=== PATIENT | male | born 1975 | race Caucasian/White ===

== ENCOUNTER 2019-10-02 23:13 | Emergency (ER) | payer BC ==
[~2019-10-02] VITALS: Ht 172.7 cm; Wt 94.5 kg
[2019-10-03 00:42] VITALS: BP 146/84
== END 2019-10-03 00:43 | disposition home or self-care (01) ==
LOC: ER 23:13
DX: I10 Essential (primary) hypertension (principal); Z88.0 Allergy status to penicillin; Z88.2 Allergy status to sulfonamides; Z88.5 Allergy status to narcotic agent
CPT/HCPCS: 93005; 99283